=== PATIENT | male | born 1960 | race Caucasian/White ===

== ENCOUNTER 2022-01-28 10:33 | Emergency (ER) | payer OTHER ==
[~2022-01-28] VITALS: Ht 172.7 cm; Wt 89.4 kg
--- NOTE | 2022-01-28 10:51 | ED Chest Pain ---
General Chief Complaint: Chest Pain Stated Complaint: CHEST PAIN Nursing Triage Note: PT AMB TO RM 7 WITH COMPLAINT OF CP. STATES PAIN STARTED APPROX 30 MIN [employer] AND LASTED ABOUT 5-10 MINUTES WHILE HE WAS COOKING. STATES HE LAID DOWN AND PAIN IMPROVED. NO CP AT TIME OF TRIAGE. Source: patient, family () Exam Limitations: no limitations History of Present Illness Date Seen by Provider: Jan 28, 2022 Time Seen by Provider: 10:40 Initial Comments Patient is a 61-year-old male who presents to the emergency department today with a chief complaint of anterior chest pain/"tightness". He states onset was about 30 minutes prior to arrival. 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 He states the discomfort did make him a little nauseous, he did break out into a sweat. He states he felt a little short of breath. The episode lasted about 10 minutes. He states he had similar symptoms approximately 2 years ago and had stress testing, this did not result in a cardiac catheterization. He does smoke about a pack of cigarettes a day. It sounds like he does have untreated hypertension. He does not have a primary care doctor at this time. Cholesterol status is unknown. He denies any recent illnesses such as fevers, chills. He does have a slight cough nonproductive. He has had diarrhea for a couple of days. He had a headache couple of days ago. No leg swelling calf discomfort. He took a baby aspirin today. He occasionally takes phentermine for weight reduction his last dose was yesterday. Pain relieved with laying down and resting. No pain currently. All other review of systems reviewed and negative except as stated. Allergies and Home Medications Allergies Coded Allergies: No Known Drug Allergies (Unverified , 01/28/22) Patient Home Medication List Home Medication List Reviewed: Yes Review of Systems Review of Systems Constitutional: see HPI EENTM: No Symptoms Reported Respiratory: Shortness of Air Cardiovascular: Chest Pain ("tightness") Gastrointestinal: Nausea Genitourinary: No Symptoms Reported Musculoskeletal: no symptoms reported Skin: no symptoms reported Psychiatric/Neurological: No Symptoms Reported All Other Systems Reviewed Negative Unless Noted: Yes Past Urzytxa-Krpkqb-Oumtfk Hx Patient Social History Tobacco Use?: Yes Tobacco type used: Cigarettes Smoking Status: Current Everyday Smoker Use of E-Cig and/or Vaping dev: No Substance use?: No Alcohol Use?: Yes Alcohol Frequency: Daily Pt feels they are or have been: No Physical Exam Vital Signs Vital Signs - First Documented 01/28/22 01/28/22 10:35 13:56 Temp 36.5 Pulse 76 Resp 13 B/P (MAP) 144/103 (117) Pulse Ox 96 O2 Delivery Room Air Capillary Refill : Less Than 3 Seconds Height, Weight, BMI Height: '" Weight: lbs. oz. kg; 29.00 BMI Method: General Appearance: No Apparent Distress, WD/WN HEENT: PERRL/EOMI Neck: Normal Inspection Respiratory: Lungs Clear, Normal Breath Sounds, No Accessory Muscle Use, No Respiratory Distress Cardiovascular: Regular Rate, Rhythm, Normal Peripheral Pulses Gastrointestinal: Non Tender, Soft Extremity: Normal Capillary Refill, Normal Inspection, Normal Range of Motion, Non Tender, No Calf Tenderness Neurologic/Psychiatric: Alert, Oriented x3, No Motor/Sensory Deficits, Normal Mood/Affect, obgyn hospitalist physician II-XII Norm as Tested Skin: Normal Color, Warm/Dry Progress/Results/Core Measures Results/Orders Lab Results Laboratory Tests Test 01/28/22 10:45 01/28/22 13:04 Range/Units White Blood Count 7.2 4.3-11.0 10^3/uL Red Blood Count 4.60 4.30-5.52 10^6/uL Hemoglobin 13.9 13.3-17.7 g/dL Hematocrit 42 40-54 % Mean Corpuscular Volume 90 80-99 fL Mean Corpuscular Hemoglobin 30 25-34 pg Mean Corpuscular Hemoglobin Concent 34 32-36 g/dL Red Cell Distribution Width 12.8 10.0-14.5 % Platelet Count 280 130-400 10^3/uL Mean Platelet Volume 9.7 9.0-12.2 fL Immature Granulocyte % (Auto) 0 % Neutrophils (%) (Auto) 42 42-75 % Lymphocytes (%) (Auto) 41 12-44 % Monocytes (%) (Auto) 12 0-12 % Eosinophils (%) (Auto) 4 0-10 % Basophils (%) (Auto) 1 0-10 % Neutrophils # (Auto) 3.0 1.8-7.8 10^3/uL Lymphocytes # (Auto) 2.9 1.0-4.0 10^3/uL Monocytes # (Auto) 0.9 0.0-1.0 10^3/uL Eosinophils # (Auto) 0.3 0.0-0.3 10^3/uL Basophils # (Auto) 0.0 0.0-0.1 10^3/uL Immature Granulocyte # (Auto) 0.0 0.0-0.1 10^3/uL Prothrombin Time 12.7 12.2-14.7 SEC INR Comment 0.9 0.8-1.4 Activated Partial Thromboplast Time 31 24-35 SEC Sodium Level 141 135-145 MMOL/L Potassium Level 3.8 3.6-5.0 MMOL/L Chloride Level 107 98-107 MMOL/L Carbon Dioxide Level 23 21-32 MMOL/L Anion Gap 11 5-14 MMOL/L Blood Urea Nitrogen 12 7-18 MG/DL Creatinine 0.91 0.60-1.30 MG/DL Estimat Glomerular Filtration Rate 96 BUN/Creatinine Ratio 13 Glucose Level 115 H 70-105 MG/DL Calcium Level 8.9 8.5-10.1 MG/DL Corrected Calcium 8.8 8.5-10.1 MG/DL Magnesium Level 2.2 1.6-2.4 MG/DL Total Bilirubin 0.6 0.1-1.0 MG/DL Aspartate Amino Transf (AST/SGOT) 27 5-34 U/L Alanine Aminotransferase (ALT/SGPT) 20 0-55 U/L Alkaline Phosphatase 81 40-136 U/L Myoglobin 75.5 10.0-92.0 NG/ML Troponin I < 0.028 < 0.028 <0.028 NG/ML Total Protein 7.1 6.4-8.2 GM/DL Albumin 4.1 3.2-4.5 GM/DL My Orders Orders - FILEMON TOLEDO MD Ekg Tracing (01/28/22 10:46) Cbc With Automated Diff (01/28/22 10:48) Magnesium (01/28/22 10:48) Chest 1 View, Ap/Pa Only (01/28/22 10:48) Comprehensive Metabolic Panel (01/28/22 10:48) Myoglobin Serum (01/28/22 10:48) Protime With Inr (01/28/22 10:48) Partial Thromboplastin Time (01/28/22 10:48) O2 (01/28/22 10:48) Monitor-Rhythm Ecg Trace Only (01/28/22 10:48) Ed Iv/Invasive Line Start (01/28/22 10:48) Troponin I [place] (01/28/22 10:48) Aspirin Chewable Tablet (Baby Aspirin Ch (01/28/22 11:00) Troponin I [place] (01/28/22 12:58) Medications Given in ED Vital Signs/I&O 01/28/22 01/28/22 10:35 13:56 Temp 36.5 Pulse 76 76 Resp 13 18 B/P (MAP) 144/103 (117) 140/92 Pulse Ox 96 97 O2 Delivery Room Air Room Air Blood Pressure Mean: 117 Progress Progress Note : Time: 13:46 Progress Note Patient has remained asymptomatic here in the emergency department. His blood pressure has come down nicely. 2 sets of cardiac enzymes/troponins are negative. No concerning findings for acute coronary syndrome at this time. No concern for acute pulmonary embolism. No concern for pneumonia or sepsis. I have encouraged him to quit smoking. I have advised that he follow-up with Dr. Tellez next week as he has seen him in the past with a stress test. I have given him return precautions to include if he has any recurrence of chest pain especially with associated symptoms or at exertion he needs to come back to the emergency to room for reevaluation. His is at the bedside and verbalized understanding and agreement of the plan of care. All questions are sought and answered. Initial ECG Impression Date: Jan 28, 2022 Initial ECG Impression Time: 10:50 Initial ECG Rate: 75 Initial ECG Rhythm: Normal Sinus Initial ECG Intervals: Normal Comment Q waves inferiorly leads III and aVF. No ectopy. No ST segment elevation or depression is noted Diagnostic Imaging Diagonstic Imaging: Xray Plain Films/CT/US/NM/MRI: chest Comments [facility], [place] NAME: JS [facility] REC#: [id number] PT STATUS: REG ER : 1960 PHYSICIAN: FILEMON TOLEDO MD ADMIT DATE: 01/28/22/ER Draft Date of Exam:01/28/22 CHEST 1 VIEW, AP/PA ONLY EXAMINATION: Chest radiograph, portable AP view. DATE: 01/28/2022 11:06 AM INDICATION: 61-year-old male, chest pain. COMPARISON: None. FINDINGS: Heart size and mediastinal contours are unremarkable. There is no identified pneumothorax. There is no large pleural effusion. There is no identified focal airspace consolidation. IMPRESSION: Dictated on workstation # [id number] Dict: 01/28/22 1109 Trans: 01/28/22 1112 [facility] [id number] Interpreted by: JUANA GUTIERREZ MD Electronically signed by: Counseling-Symptomatic: 3-10 Minutes Follow-up with PCP to: Discuss Further Options Departure Impression Primary Impression: Chest pain Qualified Codes: R07.9 - Chest pain, unspecified Disposition: HOME, SELF-CARE Condition: Stable Departure-Patient Inst. Decision time for Depature: 13:44 Referrals: RENUKA TELLEZ MD NO,LOCAL PHYSICIAN (PCP) Primary Care Physician Patient Instructions: Chest Pain (DC), Quitting Smoking ED Add. Discharge Instructions: Please continue to take your baby aspirin daily. If you have any return of chest pain especially associated with nausea, sweating, shortness of breath or change in location of the pain to your jaw, shoulder, back or down your arm please come back to the emergency room for reevaluation. Call Dr. Tellez's office on Sunday morning for a follow-up appointment next week. You should really consider stopping smoking. Copy Copies To 1: RENUKA TELLEZ MD, KATHRYN M MD Jan 28, 2022 10:51
[2022-01-28 10:59] LABS: BASOPHILS % (AUTO) 1 % (0-10); EOSINOPHILS # (AUTO) 0.3 10^3/uL (0.0-0.3); EOSINOPHILS % (AUTO) 4 % (0-10); HEMATOCRIT 42 % (40-54); HEMOGLOBIN 13.9 g/dL (13.3-17.7); LYMPHOCYTES # (AUTO) 2.9 10^3/uL (1.0-4.0); LYMPHOCYTES % (AUTO) 41 % (12-44); MEAN CORPUSCULAR HEMOGLOBIN 30 pg (25-34); MEAN CORPUSCULAR HGB CONC 34 g/dL (32-36); MEAN CORPUSCULAR VOLUME 90 fL (80-99); MEAN PLATELET VOLUME 9.7 fL (9.0-12.2); MONOCYTES # (AUTO) 0.9 10^3/uL (0.0-1.0); MONOCYTES % (AUTO) 12 % (0-12); NEUTROPHILS % (AUTO) 42 % (42-75); PLATELET COUNT 280 10^3/uL (130-400); WHITE BLOOD COUNT 7.2 10^3/uL (4.3-11.0)
[2022-01-28] MEDS ORDERED: ASPIRIN 81 MG CHEW (CHILDREN'S ASA) PO ONE (11:00)
[2022-01-28 11:11] LABS: ALBUMIN 4.1 GM/DL (3.2-4.5)
[2022-01-28 11:12] LABS: POTASSIUM 3.8 MMOL/L (3.6-5.0)
[2022-01-28 11:13] LABS: CALCIUM 8.9 MG/DL (8.5-10.1)
--- NOTE | 2022-01-28 11:13 | Diagnostic Imaging Report ---
EXAMINATION: Chest radiograph, portable AP view. DATE: 01/28/2022 11:06 AM INDICATION: 61-year-old male, chest pain. COMPARISON: None. FINDINGS: Heart size and mediastinal contours are unremarkable. There is no identified pneumothorax. There is no large pleural effusion. There is no identified focal airspace consolidation. IMPRESSION: No identified acute cardiopulmonary abnormality. Dictated by: Dictated on workstation # [id number]
[2022-01-28 11:14] LABS: TOTAL PROTEIN 7.1 GM/DL (6.4-8.2)
[2022-01-28 11:15] LABS: INR 0.9 (0.8-1.4); PROTHROMBIN TIME PATIENT 12.7 SEC (12.2-14.7)
[2022-01-28 11:16] LABS: BILIRUBIN,TOTAL 0.6 MG/DL (0.1-1.0)
[2022-01-28 11:18] LABS: CREATININE SERUM 0.91 MG/DL (0.60-1.30)
[2022-01-28 11:20] LABS: MAGNESIUM 2.2 MG/DL (1.6-2.4)
[2022-01-28 13:56] VITALS: BP 140/92
== END 2022-01-28 13:56 | disposition home or self-care (01) ==
LOC: ER 10:36
DX: R07.89 Other chest pain (principal); F17.210 Nicotine dependence, cigarettes, uncomplicated; Z79.82 Long term (current) use of aspirin
CPT/HCPCS: 36415; 71045; 80053; 83735; 83874; 84484; 85025; 85610; 85730; 93005; 93041